=== PATIENT | female | born 1990 | race Caucasian/White ===

== ENCOUNTER 2023-04-26 18:09 | Inpatient (IN) | payer BC ==
[2023-04-27] MEDS ORDERED: Lidocaine 1% 50 ML MDV INJECT PRN (00:18)
[2023-04-27] MEDS ORDERED: Sodium Chloride 0.9% 2.5 ML Syringe FLUSH PRN (00:18)
[2023-04-27] MEDS ORDERED: Sodium Chloride 0.9% 20 ML SDV IV PRN (00:18)
[2023-04-27] MEDS ORDERED: Misoprostol 200 MCG Tab PO PRN (00:18)
[2023-04-27] MEDS ORDERED: Carboprost Tromethamine 250 MCG/1 mL Vial IM PRN (00:18)
[2023-04-27] MEDS ORDERED: Methylergonovine 0.2 MG/1 ML Amp IM PRN (00:18)
[2023-04-27] MEDS ORDERED: Terbutaline 1 MG/ML SDV SUBCUT PRN (00:18)
[2023-04-27] MEDS ORDERED: Tranexamic Acid IN NACL,ISO-OS 1,000 MG in Premix Bag 1 BAG IV PRN ×2 (00:18)
[2023-04-27] MEDS ORDERED: Water For Irrigation,Sterile 1,000 ML Container IRR PRN (00:18)
[2023-04-27] MEDS ORDERED: Ondansetron 4 MG/2 ML SDV IVPUSH PRN (00:18)
[2023-04-27] MEDS ORDERED: Sodium Chloride 0.9% 10 ML Syringe FLUSH PRN (00:18)
[2023-04-27] MEDS ORDERED: Oxytocin/0.9 % Sodium Chloride 30 UNIT/500 ML BAG IV SCH ×2 (00:30)
[2023-04-27] MEDS: Lactated Ringers 1,000 ML IV SCH ×2 (00:48→05:21)
[2023-04-27] MEDS ORDERED: Misoprostol 25 MCG (1/4 of 100 MCG) Tab VAG PRN ×2 (01:00→05:00)
[2023-04-27 01:03] LABS: HEMATOCRIT 37.2 % (36.0-46.0); HEMOGLOBIN 12.6 g/dL (12.0-16.0); MEAN CORPUSCULAR HEMOGLOBIN 28.8 pg (27.0-32.0); MEAN CORPUSCULAR HGB CONC 33.9 g/dL (31.0-37.0); MEAN CORPUSCULAR VOLUME 84.9 fL (80.0-98.0); RED BLOOD CELL COUNT 4.38 M/uL (4.30-5.90); WHITE BLOOD CELL COUNT,WBC 7.17 K/uL (4.0-11.0)
[2023-04-27] MEDS ORDERED: Phenylephrine HCl 0.5 MG/5 ML AMP IVPUSH PRN (07:11)
[2023-04-27] MEDS ORDERED: ePHEDrine 50 MG/ML SDV IVPUSH PRN ×2 (07:11)
[2023-04-27] MEDS ORDERED: Ropivacaine HCl/PF 400 MG in Premix Bag 1 BAG EPIDUR SCH (07:15)
[2023-04-27] MEDS ORDERED: Ampicillin 2 GM Vial ONE (08:36)
[2023-04-27] MEDS ORDERED: Sodium Chloride 0.9% 100 ML ONE (08:37)
[2023-04-27] MEDS: Nalbuphine 10 MG/0.5 ML Syringe IVPUSH SCH (09:07)
[2023-04-27] MEDS ORDERED: Dexmedetomidine 200 MCG/2 ML SDV ONE (10:27)
[2023-04-27] MEDS ORDERED: Docusate Sodium 100 MG Cap PO PRN (18:38)
[2023-04-27] MEDS ORDERED: Benzocaine/Menthol 20%-0.5% Spray 78 GM Cannister TOP PRN (18:38)
[2023-04-27] MEDS ORDERED: Acetaminophen 500 MG Tab PO PRN ×2 (18:38)
[2023-04-27] MEDS ORDERED: Bisacodyl 10 MG Supp RECTAL PRN (18:38)
[2023-04-27] MEDS ORDERED: Lanolin 100% Cream 7 GM Tube TOP PRN (18:38)
[2023-04-27] MEDS ORDERED: Ibuprofen 400 MG Tab PO PRN (18:38)
[2023-04-27] MEDS ORDERED: oxyCODONE 5 MG Tab PO PRN (18:38)
[2023-04-27 19:25] LABS: PH,UMBILICAL ARTERIAL 7.189 (7.18-7.38); PH,UMBILICAL VENOUS 7.289 (7.25-7.45)
[2023-04-27] MEDS: Ibuprofen 800 MG Tab PO PRN (20:50)
[2023-04-27] MEDS: Witch Hazel Medicated Pads 40/Jar TOP PRN (20:53)
[2023-04-28 05:47] LABS: HEMATOCRIT 29.2 % (36.0-46.0); HEMOGLOBIN 9.7 g/dL (12.0-16.0)
[2023-04-28] MEDS: Witch Hazel Medicated Pads 40/Jar TOP PRN (08:42)
[2023-04-28] MEDS: Ibuprofen 800 MG Tab PO PRN (16:54)
== END 2023-04-28 19:57 | disposition home or self-care (01) | DRG 560 ==
LOC: MW.OB 18:09 → OBSVTOIN 04-27 18:09 → MW.OB 04-27 23:41
PROVIDERS: ADMIT Obstetrics & Gynecology; ATTEND Obstetrics & Gynecology
PROC: 10D07Z6 Extraction of Products of Conception, Vacuum, Via Natural or Artificial Opening (ICD-10-PCS; principal; 2023-04-27)
PROC: 0KQM0ZZ Repair Perineum Muscle, Open Approach (ICD-10-PCS; 2023-04-27)
PROC: 3E0R3BZ Introduction of Anesthetic Agent into Spinal Canal, Percutaneous Approach (ICD-10-PCS; 2023-04-27)
PROC: 00HU33Z Insertion of Infusion Device into Spinal Canal, Percutaneous Approach (ICD-10-PCS; 2023-04-27)
PROC: 3E033VJ Introduction of Other Hormone into Peripheral Vein, Percutaneous Approach (ICD-10-PCS; 2023-04-27)
PROC: 3E0P7VZ Introduction of Hormone into Female Reproductive, Via Natural or Artificial Opening (ICD-10-PCS; 2023-04-27)
PROC: 3E0DXGC Introduction of Other Therapeutic Substance into Mouth and Pharynx, External Approach (ICD-10-PCS; 2023-04-27)
DX: O13.4 Gestational [pregnancy-induced] hypertension without significant proteinuria, complicating childbirth (principal); Z37.0 Single live birth; O62.1 Secondary uterine inertia; O26.893 Other specified pregnancy related conditions, third trimester; O99.344 Other mental disorders complicating childbirth; F32.A Depression, unspecified; F41.9 Anxiety disorder, unspecified; Z3A.39 39 weeks gestation of pregnancy; Z67.11 Type A blood, Rh negative; Z86.16 Personal history of COVID-19; Z88.2 Allergy status to sulfonamides; Z88.8 Allergy status to other drugs, medicaments and biological substances
CPT/HCPCS: 36415; 36430; 51702; 59025; 59409; 82803; 85014; 85018; 85027; 85460; 86592; 86850; 86900; 86901; A9270-GY; J2405; J2590; J2790; J3490; J7120

== ENCOUNTER 2025-02-06 03:46 | Inpatient (IN) | payer BC, OTHER ==
[2025-02-06] MEDS ORDERED: Water For Irrigation,Sterile 1,000 ML Container IRR PRN (03:47)
[2025-02-06] MEDS ORDERED: Ondansetron 4 MG/2 ML SDV IVPUSH PRN (03:47)
[2025-02-06] MEDS ORDERED: Sodium Chloride 0.9% 10 ML Syringe FLUSH PRN (03:47)
[2025-02-06] MEDS ORDERED: Carboprost Tromethamine 250 MCG/1 mL Vial IM PRN (03:47)
[2025-02-06] MEDS ORDERED: Sodium Chloride 0.9% 2.5 ML Syringe FLUSH PRN (03:47)
[2025-02-06] MEDS: Lactated Ringers 1,000 ML IV SCH (04:00)
[2025-02-06] MEDS ORDERED: Ropivacaine HCl/PF 200 ML ONE (04:23)
[2025-02-06] MEDS ORDERED: dexmedeTOMIDine HCl 200 MCG/2 ML SDV ONE (04:23)
[2025-02-06 04:29] LABS: MEAN PLATELET VOLUME 10.7 fL (9.4-12.3); NRBC ABSOLUTE 0.00 K/uL (0.00-0.02); NRBC PERCENT 0.0 /100WBC (0.0-0.2); PLATELET COUNT,PLT 248 K/uL (150-400); RED BLOOD CELL COUNT 4.56 M/uL (4.10-5.30); WHITE BLOOD CELL COUNT,WBC 8.89 K/uL (3.9-11.3)
[2025-02-06] MEDS: Ropivacaine HCl/PF 400 MG in Premix Bag 1 BAG EPIDUR SCH (04:30)
[2025-02-06] MEDS ORDERED: dexmedeTOMIDine HCl 200 MCG/2 ML SDV EPIDUR SCH (04:45)
[2025-02-06] MEDS ORDERED: ePHEDrine 50 MG/ML SDV IVPUSH PRN (04:45)
[2025-02-06] MEDS: Oxytocin/0.9 % Sodium Chloride 30 UNIT/500 ML BAG IV SCH (07:54)
[2025-02-06] MEDS ORDERED: Measles, Mumps & Rubella Vaccine 0.5 ML SDV SUBCUT ONE (08:57)
[2025-02-06] MEDS ORDERED: Lanolin 100% Cream 7 GM Tube TOP PRN (08:57)
[2025-02-06 09:23] LABS: PH,UMBILICAL ARTERIAL 7.35 (7.18-7.38); PH,UMBILICAL VENOUS 7.33 (7.25-7.45)
[2025-02-06] MEDS ORDERED: Oxytocin/0.9 % Sodium Chloride 30 UNIT/500 ML BAG ONE (09:33)
[2025-02-06] MEDS: Benzocaine/Menthol 20%-0.5% Spray 78 GM Cannister TOP PRN (11:18)
[2025-02-06] MEDS: Witch Hazel Medicated Pads 40/Jar TOP PRN (11:18)
[2025-02-06 15:02] LABS: MEAN PLATELET VOLUME 10.8 fL (9.4-12.3); NRBC ABSOLUTE 0.00 K/uL (0.00-0.02); NRBC PERCENT 0.0 /100WBC (0.0-0.2); PLATELET COUNT,PLT 304 K/uL (150-400); RED BLOOD CELL COUNT 3.54 M/uL (4.10-5.30); WHITE BLOOD CELL COUNT,WBC 16.73 K/uL (3.9-11.3)
[2025-02-06] MEDS ORDERED: fentaNYL 100 MCG/2 ML SDV ONE (15:10)
[2025-02-06] MEDS ORDERED: Propofol 200 MG/20 ML SDV ONE (15:10)
[2025-02-06] MEDS ORDERED: Calcium Gluconate 10% 1 GM/10 ML SDV ONE (15:14)
[2025-02-06 15:25] LABS: A/G RATIO 0.7 (0.9-1.6); ALANINE AMINOTRANSFERASE,ALT 12.0 IU/L (14-63); ASPARTATE AMNIOTRANSFERASE,AST 20.0 IU/L (15-37); BILIRUBIN TOTAL 0.5 mg/dL (0.2-1.0); BLOOD UREA NITROGEN,BUN 13.0 mg/dL (7.0-18.0); CARBON DIOXIDE,CO2 19.5 mmol/L (21.0-32.0); CHLORIDE,CL 103.0 mmol/L (98-107); CREATININE 1.1 mg/dL (0.6-1.0); EST CRCL DRUG DOSING (CG) 79.4 mL/min; ESTIMATED GFR 68.0 mL/min (>60); GLUCOSE RANDOM 118.0 mg/dL (74-106); POTASSIUM,K 4.1 mmol/L (3.5-5.1); PROTEIN TOTAL,TP 5.0 g/dL (6.4-8.2); SODIUM,NA 135.0 mmol/L (136-145)
[2025-02-06 15:30] LABS: INR 0.97 (0.86-1.11); PTT,PARTIAL THROMBOPLSTIN TIME 30.1 SEC (23.9-30.7)
[2025-02-06] MEDS ORDERED: ceFAZolin 2 GM in Water For Injection, Sterile 20 ML IVPUSH SCH (16:45)
[2025-02-06] MEDS ORDERED: Lactated Ringers 1,000 ML IV SCH (17:15)
[2025-02-06] MEDS: ceFAZolin 2 GM in Water For Injection, Sterile 20 ML IVPUSH SCH (18:45)
[2025-02-06 20:10] LABS: MEAN PLATELET VOLUME 10.4 fL (9.4-12.3); NRBC ABSOLUTE 0.00 K/uL (0.00-0.02); NRBC PERCENT 0.0 /100WBC (0.0-0.2); PLATELET COUNT,PLT 193 K/uL (150-400); RED BLOOD CELL COUNT 3.95 M/uL (4.10-5.30); WHITE BLOOD CELL COUNT,WBC 11.30 K/uL (3.9-11.3)
[2025-02-06] MEDS: Furosemide 20 MG/2 ML VIAL IVPUSH SCH (20:39)
[2025-02-06 20:54] LABS: A/G RATIO 0.7 (0.9-1.6); ALANINE AMINOTRANSFERASE,ALT 14.0 IU/L (14-63); ASPARTATE AMNIOTRANSFERASE,AST 22.0 IU/L (15-37); BILIRUBIN TOTAL 0.5 mg/dL (0.2-1.0); BLOOD UREA NITROGEN,BUN 13.0 mg/dL (7.0-18.0); CARBON DIOXIDE,CO2 21.9 mmol/L (21.0-32.0); CHLORIDE,CL 106.0 mmol/L (98-107); CREATININE 1.0 mg/dL (0.6-1.0); EST CRCL DRUG DOSING (CG) 87.34 mL/min; ESTIMATED GFR 77.0 mL/min (>60); GLUCOSE RANDOM 105.0 mg/dL (74-106); POTASSIUM,K 4.1 mmol/L (3.5-5.1); PROTEIN TOTAL,TP 4.2 g/dL (6.4-8.2); SODIUM,NA 137.0 mmol/L (136-145)
[2025-02-08 05:55] LABS: MEAN PLATELET VOLUME 9.5 fL (9.4-12.3); NRBC ABSOLUTE 0.00 K/uL (0.00-0.02); NRBC PERCENT 0.0 /100WBC (0.0-0.2); PLATELET COUNT,PLT 158 K/uL (150-400); RED BLOOD CELL COUNT 2.85 M/uL (4.10-5.30); WHITE BLOOD CELL COUNT,WBC 8.95 K/uL (3.9-11.3)
[2025-02-08 06:11] LABS: BLOOD UREA NITROGEN,BUN 11.0 mg/dL (7.0-18.0); CARBON DIOXIDE,CO2 25.1 mmol/L (21.0-32.0); CHLORIDE,CL 109.0 mmol/L (98-107); CREATININE 0.8 mg/dL (0.6-1.0); EST CRCL DRUG DOSING (CG) 109.17 mL/min; GLUCOSE RANDOM 101.0 mg/dL (74-106); POTASSIUM,K 3.8 mmol/L (3.5-5.1); SODIUM,NA 141.0 mmol/L (136-145)
[2025-02-08 06:12] LABS: ESTIMATED GFR 100.0 mL/min (>60)
== END 2025-02-08 12:10 | disposition home or self-care (01) | DRG 768 ==
LOC: MW.OB 03:46 → OBSVTOIN 08:09 → MW.OB 02-07 13:18
PROVIDERS: ADMIT Obstetrics & Gynecology; ATTEND Obstetrics & Gynecology
PROC: 10E0XZZ Delivery of Products of Conception, External Approach (ICD-10-PCS; principal; 2025-02-06)
PROC: 0W3R7ZZ Control Bleeding in Genitourinary Tract, Via Natural or Artificial Opening (ICD-10-PCS; 2025-02-06)
PROC: 0KQM0ZZ Repair Perineum Muscle, Open Approach (ICD-10-PCS; 2025-02-06)
PROC: 3E0334Z Introduction of Serum, Toxoid and Vaccine into Peripheral Vein, Percutaneous Approach (ICD-10-PCS; 2025-02-06)
PROC: 30233N1 Transfusion of Nonautologous Red Blood Cells into Peripheral Vein, Percutaneous Approach (ICD-10-PCS; 2025-02-06)
PROC: 4A1HXCZ Monitoring of Products of Conception, Cardiac Rate, External Approach (ICD-10-PCS; 2025-02-06)
PROC: 3E0R3BZ Introduction of Anesthetic Agent into Spinal Canal, Percutaneous Approach (ICD-10-PCS; 2025-02-06)
PROC: 00HU33Z Insertion of Infusion Device into Spinal Canal, Percutaneous Approach (ICD-10-PCS; 2025-02-06)
DX: O42.02 Full-term premature rupture of membranes, onset of labor within 24 hours of rupture (principal); Z37.0 Single live birth; D62 Acute posthemorrhagic anemia; O71.4 Obstetric high vaginal laceration alone; O72.1 Other immediate postpartum hemorrhage; Z3A.39 39 weeks gestation of pregnancy; O99.344 Other mental disorders complicating childbirth; F32.A Depression, unspecified; O99.03 Anemia complicating the puerperium; O77.0 Labor and delivery complicated by meconium in amniotic fluid
CPT/HCPCS: 01967; 36415; 36430; 51701; 51702; 80048; 80053; 82803; 85014; 85018; 85027; 85384; 85460; 85610; 85730; 86592; 86850; 86900; 86901; 86920; A9270-GY; J0665; J0690; J1938; J2003; J2210; J2371; J2590; J2704; J2791; J2795; J3010; J7120; P9016